=== PATIENT | female | born 2000 | race Caucasian/White ===

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

== ENCOUNTER → 2021-04-13 | Outpatient (CLI) | payer OTHER ==
[~2021-04-13] MED LIST changes: +AMOXICILLIN500 M2 PO; +CORTISPORIN SUS10 ML OT
== END | disposition home or self-care (01) ==
LOC: COVID19 15:17
PROVIDERS: ATTEND Internal Medicine
DX: U07.1 COVID-19 (principal)